=== PATIENT | female | born 1985 | race Caucasian/White ===

== ENCOUNTER → 2018-01-26 13:50 | Outpatient (REF) | payer MEDICAID, SELFPAY ==
[2018-01-26 18:53] LABS: Basophils # 0.1 K/mm3 (0-0.2); Basophils % 0.6 % (0.1-2.0); Eosinophils # 0.1 K/mm3 (0.0-0.4); Hematocrit 46.4 % (37.0-47.0); Hemoglobin 14.5 g/dL (12.2-16.2); Lymphocytes # 2.7 K/mm3 (0.7-4.5); Lymphocytes % 28.8 K/mm3 (10-50); Mean Corpuscular HGB Conc 31.3 g/dL (31.8-35.4); Mean Corpuscular Hemoglobin 29.4 pg (27.0-31.2); Mean Platelet Volume 9.8 fl (7.4-10.4); Monocytes # 0.5 K/mm3 (0.1-1.0); Monocytes % 5.5 % (1.7-9.3); Neutrophils # 5.9 K/mm3 (1.8-7.8); Platelet Count 309 K/mm3 (142-424); Red Blood Count 4.94 M/mm3 (4.20-5.40); Red Cell Distribution Width 13.9 % (11.5-17.5); White Blood Count 9.3 K/mm3 (4.8-10.8)
[2018-01-26 19:32] LABS: Alanine Aminotransferase 43 U/L (12-78); Albumin Level 4.1 gm/dL (3.4-5.0); Albumin/Globulin Ratio 1.1 (1.1-1.8); Alkaline Phosphatase 96 U/L (46-116); Anion Gap 13.4 mEq/L (5-15); Aspartate Amino Transferase 18 U/L (15-37); Bilirubin,Total 0.2 mg/dL (0.2-1.0); Blood Urea Nitrogen 6 mg/dL (7-18); Calcium 9.4 mg/dL (8.5-10.1); Carbon Dioxide 27 mmol/L (21.0-32.0); Chloride 101 mmol/L (98-107); Chol/HDL Ratio 3.3 (1-3.5); Cholesterol 171 mg/dL (140-200); Estimated Glomerular Filt Rate 96 ml/min (>60); GFR (African American) 117 ML/MIN (>60); Globulin 3.7 gm/dl (1.3-3.2); Glucose 85 mg/dL (74-106); HDL Cholesterol 52 mg/dL (29-89); LDL Cholesterol 104 mg/dL (0-130); Potassium 4.4 mmoL/L (3.5-5.1); Sodium 137 mmol/L (136-145); T4 (Thyroxine) 8.6 ug/dl (4.7-13.3); Thyroid Stimulating Hormone 2.52 uIU/ml (0.358-3.740); Total Protein,Serum 7.8 gm/dL (6.4-8.2); Triglycerides 76 mg/dL (30-200); VLDL Cholesterol 15 mg/dL (0-40)
[2018-01-28 09:16] LABS: Hep A Ab, IgM Negative (Negative); Hepatitis B Core Antibody IgM Negative (Negative); Hepatitis B Surface Antigen Negative (Negative)
[2018-01-28 19:22] LABS: Vitamin D 25 Hydroxy 19.8 ng/mL (30.0-100.0)
[2018-01-28 19:23] LABS: Hepatitis C Antibody <0.1 s/co ratio (0.0-0.9)
== END ==
LOC: LAB 13:50
PROVIDERS: Visit Provider Nurse Practitioner Family
DX: R53.83 Other fatigue (principal); Z72.51 High risk heterosexual behavior
CPT/HCPCS: 80053; 80061; 80074; 82652; 84436; 84443; 85025

== ENCOUNTER → 2018-03-28 15:08 | Outpatient (REF) | payer MEDICAID, SELFPAY | LOC: LAB 15:08 | PROVIDERS: Visit Provider Nurse Practitioner Family | DX: R10.9 Unspecified abdominal pain (principal); Z32.01 Encounter for pregnancy test, result positive | CPT/HCPCS: 84702; 87086; 87088; 87186 ==

== ENCOUNTER → 2018-06-01 12:36 | Outpatient (CLI) | payer MEDICAID, SELFPAY ==
--- NOTE | 2018-06-01 12:40 | US_ITS ---
US OB >= 14 weeks Fetus: INDICATION: ITS.REASON: US OB Dates ORDERING PHYSICIAN: Arlen Fuller MD PATIENT AGE: 32 years TECHNIQUE: ultrasound transabdominal scanning. COMPARISON: No previous relevant studies. FINDINGS: There is a single live intrauterine gestation. heart tones noted with an FHR of 140 bpm. [place]-rump length equals 15 weeks 3 days. BPD equals 16 weeks 0 days, OFD equals 15 weeks 6 days, HC equals 15 weeks 4 days. Average ultrasound age is 15 weeks 5 days. Estimated due date by ultrasound is 11/18/2018. This exam does not suffice for an anatomy evaluation. The cervix is closed measuring 4 cm. Placenta is forming and is posterior. IMPRESSION: Live intrauterine gestation at 15 weeks 5 days with an estimated due date of 11/18/2018
== END ==
PROVIDERS: PCP Nurse Practitioner Family; Visit Provider Obstetrics & Gynecology
DX: O26.841 Uterine size-date discrepancy, first trimester (principal)
CPT/HCPCS: 76805

== ENCOUNTER → 2018-07-05 13:42 | Outpatient (CLI) | payer MEDICAID, SELFPAY ==
--- NOTE | 2018-07-05 13:43 | US_ITS ---
US OB /maternal detail: INDICATION: ITS.REASON: US OB Complete ORDERING PHYSICIAN: Arlen Fuller MD PATIENT AGE: 32 years TECHNIQUE: ultrasound transabdominal scanning. COMPARISON: No previous relevant studies. FINDINGS: Single viable intrauterine gestation. Breech position. Placenta: Posterior placenta grade 1. There is average amount fluid. Complete survey performed and was unremarkable on the submitted images as in PACS. No discrete anomalies identified on survey imaging by technologist. Active fetus. Three-vessel cord with satisfactory umbilical cord insertion. There may be some mild straightening of the umbilical cord 4- chamber heart noted. Survey of brain & ventricles unremarkable. Face and neck survey unremarkable. Diaphragm and chest views unremarkable. Abdomen: Both kidneys noted and unremarkable. Stomach noted and satisfactory. Spine: Survey of the spine satisfactory with no anomalies identified nor imaged. Both arms and legs noted. Amniotic Fluid: Adequate. Maternal adnexa: No significant findings. Measurements: Average ultrasound age 20w3d. Gestational Age 20w5d. Estimated due date by ultrasound age 1211/19/2018. Estimated weight 356 grams. BPD = 20w0d OFD = 21w5d HC = 20w2d AC = 20w4d FL = 20w5d Growth Percentile= 32% based on established due date of 11/17/2018 Heart Rate = 138 Cerebellum = 20w2d Humerus = 21w2d HC/AC is 1.17 (1.09-1.26). CI is 70% (70-86%). FL/BPD is 73%. FL/AC is 22%. IMPRESSION: There is a single live fetus in breech presentation with an average ultrasound age of 20 weeks 3 days. All parameters correlate with no obvious anomalies. Please see above for detail. There is some mild stranding of the umbilical cord of questioned clinical significance.
== END ==
PROVIDERS: PCP Nurse Practitioner Family; Visit Provider Obstetrics & Gynecology
DX: Z36.0 Encounter for antenatal screening for chromosomal anomalies (principal)
CPT/HCPCS: 76811

== ENCOUNTER → 2018-08-04 07:45 | Outpatient (CLI) | payer MEDICAID, SELFPAY ==
[2018-08-04 08:16] LABS: Basophils % 0.3 % (0.1-2.0); Eosinophils # 0.2 K/mm3 (0.0-0.4); Eosinophils % 1.3 % (0.1-12.0); Hematocrit 34.5 % (37.0-47.0); Hemoglobin 11.2 g/dL (12.2-16.2); Lymphocytes # 2.8 K/mm3 (0.7-4.5); Lymphocytes % 24.9 K/mm3 (10-50); Mean Corpuscular HGB Conc 32.5 g/dL (31.8-35.4); Mean Corpuscular Hemoglobin 31.7 pg (27.0-31.2); Mean Corpuscular Volume 97.4 fl (81-99); Mean Platelet Volume 8.5 fl (7.4-10.4); Monocytes # 0.4 K/mm3 (0.1-1.0); Monocytes % 3.3 % (1.7-9.3); Neutrophils # 7.9 K/mm3 (1.8-7.8); Neutrophils % 70.1 % (37.0-80.0); Platelet Count 240 K/mm3 (142-424); Red Blood Count 3.54 M/mm3 (4.20-5.40); Red Cell Distribution Width 13.2 % (11.5-17.5); White Blood Count 11.3 K/mm3 (4.8-10.8)
[2018-08-08 05:20] LABS: HIV Screen 4th Generation wRfx Non Reactive (Non Reactive); Hepatitis B Surface Antigen Negative (Negative); Hepatitis C Antibody <0.1 s/co ratio (0.0-0.9); Rapid Plasma Reagin Ab Titer Non Reactive (NonRea<1:1)
== END ==
PROVIDERS: PCP Nurse Practitioner Family; Visit Provider Obstetrics & Gynecology
DX: Z34.90 Encounter for supervision of normal pregnancy, unspecified, unspecified trimester (principal)
CPT/HCPCS: 36415; 85025; 86592; 86703; 86762; 86850; 87340; 87380; G0432

== ENCOUNTER → 2018-10-26 08:25 | Outpatient (CLI) | payer MEDICAID, SELFPAY | PROVIDERS: Visit Provider Obstetrics & Gynecology | DX: Z34.90 Encounter for supervision of normal pregnancy, unspecified, unspecified trimester (principal) ==

== ENCOUNTER → 2018-10-26 17:02 | Outpatient (CLI) | payer MEDICAID, SELFPAY ==
[2018-10-29 07:18] LABS: Neisseria gonorrhoeae, NAA Negative (Negative)
== END ==
PROVIDERS: Visit Provider Obstetrics & Gynecology
DX: Z34.90 Encounter for supervision of normal pregnancy, unspecified, unspecified trimester (principal)
CPT/HCPCS: 86403; 87491; 87591

== ENCOUNTER 2018-11-07 09:28 | Outpatient (CLI) | payer MEDICAID, SELFPAY ==
[2018-11-07 10:05] VITALS: BMI 36.6
[2018-11-07 10:18] LABS: Microscopic, Urine URINE MICROSCOPIC (MICROSCOPIC)
[2018-11-07 10:23] LABS: Appearance,Urine CLOUDY (Clear); Bilirubin,Urine Negative (Negative); Blood, Urine Negative (Negative); Color,Urine YELLOW (Yellow); Glucose,Urine (UA) Negative (Negative); Ketones,Urine Negative (Negative); Leukocyte Esterase,Urine 2+ (Negative); Nitrate,Urine Negative (Negative); Protein,Urine Negative (Negative); Specific Gravity, Urine 1.015 (1.005-1.030); Urobilinogen,Urine 0.2 EU/dl (0.2)
[2018-11-07 10:29] LABS: Amphetamine/Metha Screen,Urine Negative ng/mL (<1000); Barbiturates Screen,Urine Negative ng/mL (<200); Benzodiazepines Screen,Urine Negative ng/mL (<200); Cannabinoid Screen,Urine Negative ng/mL (<50); Cocaine Screen,Urine Negative ng/mL (<300); Methadone Screen,Urine Negative ng/mL (<300); Opiate Screen,Urine Negative ng/mL (<300); Phencyclidine Screen,Urine Negative ng/mL (<25)
[2018-11-07 10:31] VITALS: BP 145/78; PULSE 90; RESP 16; TEMP 36.6; O2SAT 97; BMI 36.6
[2018-11-07 10:32] LABS: Fetal Membrane Rupture (Rapid) Negative (Negative)
[2018-11-07 10:35] LABS: Bacteria,Urine 4+ /lpf; Squamous Epithelial Cell,Urine 20-50 #/hpf (0-5); WBC,Urine 20-50 #/hpf (0-3)
== END 2018-11-07 11:05 | disposition home or self-care (01) ==
LOC: OBOUT 09:29 → OB 09:30
PROVIDERS: PCP Nurse Practitioner Family; Visit Provider Obstetrics & Gynecology
DX: O60.03 Preterm labor without delivery, third trimester (principal); Z3A.38 38 weeks gestation of pregnancy
CPT/HCPCS: 59025; 80305; 81001; 84112; 87086

== ENCOUNTER 2018-11-13 16:00 | Outpatient (CLI) | payer MEDICAID, SELFPAY ==
[2018-11-13 16:17] VITALS: BMI 36.6
[2018-11-13 16:25] LABS: Microscopic, Urine URINE MICROSCOPIC (MICROSCOPIC)
[2018-11-13 16:27] LABS: Appearance,Urine CLOUDY (Clear); Bilirubin,Urine Negative (Negative); Blood, Urine Negative (Negative); Color,Urine YELLOW (Yellow); Glucose,Urine (UA) Negative (Negative); Ketones,Urine Negative (Negative); Leukocyte Esterase,Urine 3+ (Negative); Nitrate,Urine Negative (Negative); Protein,Urine Negative (Negative); Specific Gravity, Urine 1.015 (1.005-1.030); Urobilinogen,Urine 0.2 EU/dl (0.2)
[2018-11-13 16:30] VITALS: BP 137/88; PULSE 81; RESP 18; TEMP 37; O2SAT 97; BMI 42.4
[2018-11-13 16:35] LABS: Amphetamine/Metha Screen,Urine Negative ng/mL (<1000); Bacteria,Urine 4+ /lpf; Barbiturates Screen,Urine Negative ng/mL (<200); Benzodiazepines Screen,Urine Negative ng/mL (<200); Cannabinoid Screen,Urine Positive ng/mL (<50); Cocaine Screen,Urine Negative ng/mL (<300); Methadone Screen,Urine Negative ng/mL (<300); Opiate Screen,Urine Negative ng/mL (<300); Phencyclidine Screen,Urine Negative ng/mL (<25); Squamous Epithelial Cell,Urine 20-50 #/hpf (0-5)
== END 2018-11-13 18:20 | disposition home or self-care (01) ==
LOC: OBOUT 16:01 → OB 16:03
PROVIDERS: PCP Nurse Practitioner Obstetrics & Gynecology; Visit Provider Nurse Practitioner Obstetrics & Gynecology
DX: O60.03 Preterm labor without delivery, third trimester (principal); Z3A.39 39 weeks gestation of pregnancy
CPT/HCPCS: 59025; 80305; 81001; 87086; 96360; J0595

== ENCOUNTER 2018-11-16 09:58 | Inpatient (IN) ==
[2018-11-16 10:20] VITALS: BP 141/81
[2018-11-16 12:34] LABS: Amphetamine/Metha Screen,Urine Negative ng/mL (<1000); Barbiturates Screen,Urine Negative ng/mL (<200); Benzodiazepines Screen,Urine Negative ng/mL (<200); Cannabinoid Screen,Urine Positive ng/mL (<50); Cocaine Screen,Urine Negative ng/mL (<300); Methadone Screen,Urine Negative ng/mL (<300); Opiate Screen,Urine Negative ng/mL (<300); Phencyclidine Screen,Urine Negative ng/mL (<25)
[2018-11-16 12:48] LABS: Basophils % 0.3 % (0.1-2.0); Eosinophils # 0.1 K/mm3 (0.0-0.4); Hematocrit 32.3 % (37.0-47.0); Hemoglobin 10.7 g/dL (12.2-16.2); Lymphocytes # 2.7 K/mm3 (0.7-4.5); Lymphocytes % 21.6 % (10-50); Mean Corpuscular HGB Conc 33.1 g/dL (31.8-35.4); Mean Corpuscular Hemoglobin 31.3 pg (27.0-31.2); Mean Corpuscular Volume 94.4 fl (81-99); Mean Platelet Volume 8.5 fl (7.4-10.4); Monocytes # 0.4 K/mm3 (0.1-1.0); Monocytes % 3.4 % (1.7-9.3); Neutrophils # 9.1 K/mm3 (1.8-7.8); Neutrophils % 73.7 % (37.0-80.0); Platelet Count 240 K/mm3 (142-424); Red Blood Count 3.42 M/mm3 (4.20-5.40); Red Cell Distribution Width 13.9 % (11.5-17.5); White Blood Count 12.3 K/mm3 (4.8-10.8)
--- NOTE | 2018-11-16 15:05 | Progress Note ---
[facility] Anesthesia Checklist - Structural Data Admitted From: Inpatient Planned Operative Procedure/s: labor epidural Consent for Planned Operative Procedure(s) Verified: Yes - Airway Assessment C-Spine Mobility Assessed: Yes TMJ Mobility Assessed: Yes Dentition: Good Dentition - Neurological Assessment Level of Consciousness: Awake, Alert, Appropriate - Anesthesia Plan Anesthesia Risk discussed: Yes Anesthesia Plan: Verified ASA Class: II Anesthesia Type: Epidural [facility] History I have reviewed the patient's past medical history: Yes Medical History: Reports:: Anxiety, Depression Other Surgeries: Yes: No Previous Surgery. No: Amputation: No Fractures: No - *Social History Smoking Status: Current every day smoker Tobacco Type: cigarettes # Packs/Day (cigarettes): 1 Alcohol Intake: never Substance Use Type: former substance user, marijuana Occupational Status: employed Housing: apartment Household Members: children, friend(s) - Psychiatric History Pschychiatric History:: Reports:: Anxiety, Depression *Family Hx:: No significant family history Para: 4
--- NOTE | 2018-11-16 16:17 | History & Physical Report ---
OB - H&P: HPI Antepartum - History of Present Illness Chief complaint: contractions History of present illness: 39+ wks with regular contractions and noted cervical change. Admitted for active labor. care Dr. Fuller's office; complicated by late presentation, obesity, bipolar d/o, tobacco abuse, +UDS (THC) and chlamydia cervicitis. GCT was also no-showed at correct GA and subsequent testing ordered was not drawn correctly. [facility] History I have reviewed the patient's past medical history: Yes Medical History: Reports:: Anxiety, Depression Other Surgeries: Yes: No Previous Surgery. No: Amputation: No Fractures: No - *Social History Smoking Status: Current every day smoker Tobacco Type: cigarettes # Packs/Day (cigarettes): 1 Alcohol Intake: never Substance Use Type: former substance user, marijuana Occupational Status: employed Housing: apartment Household Members: children, friend(s) - Psychiatric History Pschychiatric History:: Reports:: Anxiety, Depression *Family Hx:: No significant family history Para: 4 Review of Systems - Review of Systems CONSTITUTIONAL: no fever/chills HEENT: no oral lesions PULMONARY: no shortness of breath or difficulty breathing CV: no racing heart, palpitations or chest pain ABD: no abdominal pain, N/V : + contractions. no lof/vb SKIN: no new rash or skin lesions EXT: + LE edema NEURO: no mental status changes PSYCH: no current anxiety/depression; + h/o bipolar d/o Meds Home Medications Medication Instructions Recorded Confirmed Type 1 tab PO DAILY 06/30/18 11/16/18 History vitamin,calcium,cxbwiwga-vjrk-mkkmi acid tablet Cetirizine HCl [All Day Allergy] 10 mg PO DAILY 11/07/18 11/16/18 History Citalopram Hydrobromide 20 mg PO DAILY 11/07/18 11/16/18 History [Citalopram HBr] Allergies Allergy/AdvReac Type Severity Reaction Status Date / Time amoxicillin [From AUGMENTIN] Allergy Severe THROAT Verified 10/26/18 09:30 CLOSED UP cephalexin [From KEFLEX] Allergy Severe SHOCK Verified 10/26/18 09:30 clavulanic acid Allergy Severe THROAT Verified 10/26/18 09:30 [From AUGMENTIN] CLOSED UP PCN Allergy Intermediate I-HIVES Uncoded 10/26/18 09:30 OB - H&P: Exam - Physical Exam Vital signs: Temp Pulse Resp BP Pulse Ox 98.4 F 80 18 141/81 H 97 11/16/18 10:09 11/16/18 10:09 11/16/18 10:09 11/16/18 10:09 11/16/18 10:09 Narrative: CONSTITUTIONAL: no acute distress HEENT: mucous membranes moist PULMONARY: breathing unlabored without audible wheezes CV: no tachycardia or visible JVD; normal LE peripheral pulses ABD: soft, NT/ND, no guarding : cervix 4/70/-1 AROM clear fluid; IUPC and FSE placed without difficulty SKIN: no visible rash or lesions EXT: 1+ edema LEs NEURO: alert/oriented, no altered mental status PSYCH: appropriate mood and demeanor without visible anxiety/depression NST: Basline: 140 Variability: moderate Accelerations: yes Decelerations: no Impression: Reactive, Category 1 OB - Results - Labs Labs: Short CBC 11/16/18 Range/Units 12:35 WBC 12.3 H (4.8-10.8) K/mm3 Hgb 10.7 L (12.2-16.2) g/dL Hct 32.3 L (37.0-47.0) % Plt Count 240 (142-424) K/mm3 OB - A/P Antepartum (1) 39 weeks gestation of Current visit: Yes Status: Acute (2) Active labor at term Current visit: Yes Status: Acute (3) Bipolar 1 disorder Current visit: Yes Status: Acute (4) Chlamydia infection affecting in second trimester Current visit: Yes Status: Acute (5) Obesity, morbid, BMI 40.0-49.9 Current visit: Yes Status: Chronic (6) Positive urine drug screen Problem details: THC Current visit: Yes Status: Acute (7) Tobacco smoking complicating in first trimester Problem details: 1PPD Current visit: Yes Status: Chronic (8) Penicillin allergy Current visit: Yes Status: Chronic - Additional Plan Additional Information:: Admission for labor Pitocin augmentation per protocol Continuous monitoring Anticipate SW consult
--- NOTE | 2018-11-16 16:57 | Procedure Note ---
- Delivery Note Delivery Date:: 11/16/18 Delivery Time:: 16:55 Anesthesia Type: Epidural Was labor medically induced?: No Gestational age (weeks): 39 Infant delivered prior to 39 weeks?: No Gender: Female at 1 minute: 9 at 5 minutes: 9 LAC or MLE?: LAC Delivery Procedure:: Spontaneous vaginal delivery of vigorous liveborn female over intact perineum. Apgars: 9 & 9 Delivery uncomplicated; no nuchal cord or shoulder dystocia with delivery Infant placed immediately on maternal abdomen for nursing assessment & JUVENTINO immediately after umbilical cord clamped/cut Placenta spontaneously expressed and examined; noted to be complete/intact Vulva, vagina, and cervix inspected; first degree vaginal laceration noted without needed repair EBL: 300cc All sponge/needle/instrument counts correct at conclusion of procedure Disposition: Mom/baby stable to recovery in LDRP Laceration:: vaginal Placental Delivery Description: Spontaneous
[2018-11-17 06:15] LABS: Hematocrit 28.7 % (37.0-47.0)
[2018-11-17 06:22] LABS: Hemoglobin 9.6 g/dL (12.2-16.2)
--- NOTE | 2018-11-18 09:10 | Progress Note ---
Internal Medicine - PN: Subj *Date: 11/17/18 *Time: 09:06 Interval history: PPD #1 no complaints Taisha reg diet, ambulating and voiding without difficulty lochia normal Exam Vital signs and Labs for Last 24 Hours: Temp Pulse Resp BP Pulse Ox 98.4 F 80 18 141/81 H 97 11/16/18 10:09 11/16/18 10:09 11/16/18 10:09 11/16/18 10:09 11/16/18 10:09 I & O for Last 24 hours: Intake & Output 11/15/18 11/16/18 11/17/18 11/18/18 11:59 11:59 11:59 11:59 Weight 246 lb 247 lb Narrative: CONSTITUTIONAL: no acute distress HEENT: mucous membranes moist PULMONARY: breathing unlabored without audible wheezes CV: no tachycardia or visible JVD; normal LE peripheral pulses ABD: soft, NT/ND, no guarding : fundus firm at/below umbilicus SKIN: no visible rash or lesions EXT: 1+ edema LEs NEURO: alert/oriented, no altered mental status PSYCH: appropriate mood and demeanor without visible anxiety/depression Assessment and Plan (1) 39 weeks gestation of Current visit: Yes Status: Acute Category: Medical Code(s): Z3A.39 - 39 weeks gestation of (2) Normal vaginal delivery Current visit: Yes Status: Acute Category: Medical Code(s): O80 - Encounter for full-term uncomplicated delivery (3) Active labor at term Current visit: Yes Status: Acute Category: Medical (4) Bipolar 1 disorder Current visit: Yes Status: Acute Category: Medical Code(s): F31.9 - Bipolar disorder, unspecified (5) Chlamydia infection affecting in second trimester Current visit: Yes Status: Acute Category: Medical Code(s): O98.812 - Other maternal infectious and parasitic diseases complicating , second trimester; A74.9 - Chlamydial infection, unspecified (6) Obesity, morbid, BMI 40.0-49.9 Current visit: Yes Status: Chronic Category: Medical Code(s): E66.01 - Morbid (severe) obesity due to excess calories (7) Positive urine drug screen Problem details: THC Current visit: Yes Status: Acute Category: Medical Code(s): R82.5 - Elevated urine levels of drugs, medicaments and biological substances (8) Tobacco smoking complicating in first trimester Problem details: 1PPD Current visit: Yes Status: Chronic Category: Medical Code(s): O99.331 - Smoking (tobacco) complicating , first trimester (9) Penicillin allergy Current visit: Yes Status: Chronic Category: Medical Code(s): Z88.0 - Allergy status to penicillin - Assessment and plan all Dx Assessment and Plan for all problems:: Routine care SW consult for +urine tox anticipate discharge tomorrow
--- NOTE | 2018-11-18 09:18 | Discharge Summary ---
General - General Admission date:: 11/16/18 Discharge date: 11/18/18 HPI HPI: Admitted in active labor at term S/P normal without complication Routine course At time of discharge, tolerating regular diet, ambulating and voiding without d ifficulty SW consult occurred Hospital Course Hospital Course: as per HPI Objective Vital signs: Temp Pulse Resp BP Pulse Ox 98.4 F 80 18 141/81 H 97 11/16/18 10:09 11/16/18 10:09 11/16/18 10:11/16/18 10:11/16/18 10:09 Narrative: CONSTITUTIONAL: no acute distress HEENT: mucous membranes moist PULMONARY: breathing unlabored without audible wheezes CV: no tachycardia or visible JVD; normal LE peripheral pulses ABD: soft, NT/ND, no guarding : fundus firm at/below umbilicus SKIN: no visible rash or lesions EXT: 1+ edema LEs NEURO: alert/oriented, no altered mental status PSYCH: appropriate mood and demeanor without visible anxiety/depression DS: Diagnosis - Discharge Diagnosis (1) 39 weeks gestation of Status: Acute (2) Normal vaginal delivery Status: Acute (3) Active labor at term Status: Acute (4) Bipolar 1 disorder Status: Acute (5) Chlamydia infection affecting in second trimester Status: Acute (6) Obesity, morbid, BMI 40.0-49.9 Status: Chronic (7) Positive urine drug screen Status: Acute Problem details: THC (8) Tobacco smoking complicating in first trimester Status: Chronic Problem details: 1PPD (9) Penicillin allergy Status: Chronic Discharge Plan - Patient Discharge Instructions ACTIVITY: Continue current activity DIET: regular diet - Follow up Plan Disposition: Home, Self-Halfway Medications: Home Medications Medication Instructions Recorded Confirmed Type 1 tab PO DAILY 06/30/18 11/16/18 History vitamin,calcium,lhvlkveg-jeis-yquhi acid tablet Cetirizine HCl [All Day Allergy] 10 mg PO DAILY 11/07/18 11/16/18 History Citalopram Hydrobromide 20 mg PO DAILY 11/07/18 11/16/18 History [Citalopram HBr] Ibuprofen [Motrin 400mg 800 mg PO Q6HP PRN #30 tablet 11/18/18 Rx tablet] Prescriptions/Medication Reconciliation: New Ibuprofen [Motrin 400mg tablet] 800 mg PO Q6HP PRN #30 tablet PRN Reason: Mild To Moderate Pain Continue vitamin,calcium,luhyqxdw-fmli-lxrdh acid tablet 1 tab PO DAILY Cetirizine HCl [All Day Allergy] 10 mg PO DAILY Citalopram Hydrobromide [Citalopram HBr] 20 mg PO DAILY
== END 2018-11-18 12:00 | disposition home or self-care (01) | DRG 807 ==
LOC: OBOUT 09:58 → OB 10:01
PROVIDERS: ADMIT Obstetrics & Gynecology; ATTEND Obstetrics & Gynecology
CPT/HCPCS: 36415; 59025; 80305; 81001; 85014; 85018; 85025; 86850; 87086; 96360; C1758; J0595

== ENCOUNTER → 2019-05-11 16:51 | Outpatient (CLI) | payer MEDICAID, SELFPAY ==
[2019-05-11 18:18] LABS: Basophils % 0.3 % (0.1-2.0); Eosinophils # 0.2 K/mm3 (0.0-0.4); Eosinophils % 2.2 % (0.1-12.0); Hematocrit 43.4 % (37.0-47.0); Hemoglobin 13.1 g/dL (12.2-16.2); Lymphocytes % 32.6 % (10-50); Mean Corpuscular HGB Conc 30.3 g/dL (31.8-35.4); Mean Corpuscular Hemoglobin 27.8 pg (27.0-31.2); Mean Corpuscular Volume 91.8 fl (81-99); Mean Platelet Volume 10.1 fl (7.4-10.4); Monocytes # 0.7 K/mm3 (0.1-1.0); Monocytes % 7.9 % (1.7-9.3); Neutrophils # 5.3 K/mm3 (1.8-7.8); Platelet Count 289 K/mm3 (142-424); Red Blood Count 4.73 M/mm3 (4.20-5.40); Red Cell Distribution Width 13.9 % (11.5-17.5); White Blood Count 9.2 K/mm3 (4.8-10.8)
[2019-05-11 18:44] LABS: Chloride 106 mmol/L (98-107); Potassium 4.3 mmoL/L (3.5-5.1); Sodium 142 mmol/L (136-145)
[2019-05-11 19:07] LABS: Alanine Aminotransferase 32 U/L (12-78); Albumin Level 3.7 gm/dL (3.4-5.0); Albumin/Globulin Ratio 1.2 (1.1-1.8); Alkaline Phosphatase 73 U/L (46-116); Anion Gap 18.3 mEq/L (5-15); Aspartate Amino Transferase 14 U/L (15-37); Bilirubin,Total 0.2 mg/dL (0.2-1.0); Blood Urea Nitrogen 10 mg/dL (7-18); Calcium 8.7 mg/dL (8.5-10.1); Carbon Dioxide 22 mmol/L (21.0-32.0); Estimated Glomerular Filt Rate 96 ml/min (>60); GFR (African American) 116 ML/MIN (>60); Globulin 3.1 gm/dl (1.3-3.2); Glucose 100 mg/dL (74-106); Total Protein,Serum 6.8 gm/dL (6.4-8.2)
[2019-05-11 19:36] LABS: Free T4 (Free Thyroxine) 0.88 ng/dl (0.76-1.46); Thyroid Stimulating Hormone 1.84 uIU/ml (0.358-3.740)
[2019-05-14 21:38] LABS: Triiodothyronine (T3) Free 2.6 pg/mL (2.0-4.4); Vitamin D 25 Hydroxy 27.1 ng/mL (30.0-100.0)
== END ==
PROVIDERS: Visit Provider Nurse Practitioner Family
DX: R53.83 Other fatigue (principal); E55.9 Vitamin D deficiency, unspecified; Z79.899 Other long term (current) drug therapy
CPT/HCPCS: 80053; 82652; 84439; 84443; 84481; 85025

== ENCOUNTER → 2019-05-19 14:24 | Outpatient (CLI) | payer MEDICAID, SELFPAY ==
[2019-05-19 16:42] LABS: Amphetamine/Metha Screen,Urine Negative ng/mL (<1000); Barbiturates Screen,Urine Negative ng/mL (<200); Benzodiazepines Screen,Urine Negative ng/mL (<200); Cannabinoid Screen,Urine Positive ng/mL (<50); Cocaine Screen,Urine Negative ng/mL (<300); Methadone Screen,Urine Negative ng/mL (<300); Opiate Screen,Urine Negative ng/mL (<300); Phencyclidine Screen,Urine Negative ng/mL (<25)
== END ==
PROVIDERS: Visit Provider Nurse Practitioner Family
DX: Z79.899 Other long term (current) drug therapy (principal)
CPT/HCPCS: 80305

== ENCOUNTER → 2021-04-15 13:48 | Outpatient (CLI) | payer OTHER, SELFPAY ==
[2021-04-15 14:15] LABS: Alanine Aminotransferase 17 U/L (12-78); Albumin Level 4.1 g/dl (3.5-5.0); Albumin/Globulin Ratio 1.7 (1.1-1.8); Alkaline Phosphatase 61 U/L (38-126); Anion Gap 12.1 mEq/L (5-15); Aspartate Amino Transferase 22 U/L (14-36); Bilirubin,Total 0.5 mg/dl (0.2-1.3); Blood Urea Nitrogen 9 mg/dl (7-17); Carbon Dioxide 26 mmol/L (22.0-30.0); Chloride 108 mmol/L (98-107); Chol/HDL Ratio 3.2 (1-3.5); Cholesterol 138 mg/dl (140-200); Estimated Glomerular Filt Rate 113 ml/min (>60); GFR (African American) 137 ML/MIN (>60); Globulin 2.4 g/dL (1.3-3.2); Glucose 88 mg/dl (74-100); HDL Cholesterol 43 mg/dl (40-60); Potassium 4.1 mmoL/L (3.5-5.1); Sodium 142 mmol/L (136-145); Total Protein,Serum 6.5 g/dl (6.3-8.2); Triglycerides 57 mg/dl (30-150); VLDL Cholesterol 11 mg/dL (0-40)
[2021-04-15 14:31] LABS: Free T4 (Free Thyroxine) 1.28 ng/dl (0.78-2.19)
[2021-04-15 14:33] LABS: Basophils # 0.1 K/mm3 (0-0.2); Basophils % 0.7 % (0.1-2.0); Eosinophils # 0.2 K/mm3 (0.0-0.4); Eosinophils % 2.1 % (0.1-12.0); Hematocrit 41.8 % (37.0-47.0); Hemoglobin 13.3 g/dL (12.2-16.2); Lymphocytes # 2.8 K/mm3 (0.7-4.5); Lymphocytes % 37.3 % (10-50); Mean Corpuscular HGB Conc 31.9 g/dL (31.8-35.4); Mean Corpuscular Hemoglobin 30.1 pg (27.0-31.2); Mean Corpuscular Volume 94.5 fl (81-99); Mean Platelet Volume 9.8 fl (7.4-10.4); Monocytes # 0.4 K/mm3 (0.1-1.0); Monocytes % 4.9 % (1.7-9.3); Neutrophils # 4.1 K/mm3 (1.8-7.8); Neutrophils % 55.1 % (37.0-80.0); Platelet Count 258 K/mm3 (142-424); Red Blood Count 4.42 M/mm3 (4.20-5.40); Red Cell Distribution Width 13.9 % (11.5-17.5); White Blood Count 7.4 K/mm3 (4.8-10.8)
[2021-04-15 14:46] LABS: Thyroid Stimulating Hormone 1.22 uIU/mL (0.465-4.68)
== END ==
PROVIDERS: Visit Provider Nurse Practitioner Family
DX: Z00.00 Encounter for general adult medical examination without abnormal findings (principal)
CPT/HCPCS: 80053; 80061; 84439; 84443; 85025

== ENCOUNTER → 2021-05-15 12:43 | Outpatient (CLI) | payer OTHER, SELFPAY | PROVIDERS: PCP Nurse Practitioner Family; Visit Provider Nurse Practitioner Family | DX: R06.02 Shortness of breath (principal) | CPT/HCPCS: 94060; 94618; 94726; 94729 ==

== ENCOUNTER 2021-10-03 16:16 | Emergency (ER) | payer OTHER, SELFPAY ==
--- NOTE | 2021-10-03 16:16 | ECG_ITS ---
APPROVED REPORT Exam: Resting ECG HR:59 bpm ECG Measurements Heart Rate 59 AXES NV 160 P 29 QRSd 102 QRS 0 QT 426 T 13 QTc 421 Conclusion Sinus bradycardia Otherwise normal ECG Electronically signed by : Boris Lorenzana MD 10/05/2021 08:32:36
[2021-10-03 16:23] VITALS: BP 130/79; PULSE 61; RESP 18; TEMP 36.7; O2SAT 98; BMI 40.3
--- NOTE | 2021-10-03 16:25 | XR_ITS ---
PROCEDURE INFORMATION: Exam: XR Chest Exam date and time: 10/03/2021 4:25 PM Age: 35 years old Clinical indication: Chest wall pain; Patient HX: Chest pain; Additional info: Cough TECHNIQUE: Imaging protocol: XR of the chest. Views: 1 view. COMPARISON: No relevant prior studies available. FINDINGS: Lungs: No lobar consolidation, effusion or edema. 7 mm possible pulmonary nodule right lower lobe. CT is recommended. Pleural spaces: Unremarkable. No pleural effusion. No pneumothorax. Heart/Mediastinum: Unremarkable. No cardiomegaly. Bones/joints: Unremarkable. IMPRESSION: 1. No lobar consolidation, effusion or edema. 2. 7 mm possible pulmonary nodule right lower lobe. CT is recommended unless there are previous radiographs that can confirm this is stable and chronic.
[2021-10-03 16:33] VITALS: BMI 40.3
[2021-10-03 16:41] LABS: Basophils # 0.1 K/mm3 (0-0.2); Basophils % 0.8 % (0.1-2.0); Eosinophils # 0.2 K/mm3 (0.0-0.4); Eosinophils % 2.2 % (0.1-12.0); Hematocrit 39.8 % (37.0-47.0); Hemoglobin 12.7 g/dL (12.2-16.2); Lymphocytes # 3.1 K/mm3 (0.7-4.5); Lymphocytes % 40.2 % (10-50); Mean Corpuscular HGB Conc 31.9 g/dL (31.8-35.4); Mean Platelet Volume 8.7 fl (7.4-10.4); Monocytes # 0.4 K/mm3 (0.1-1.0); Monocytes % 4.9 % (1.7-9.3); Neutrophils # 4.1 K/mm3 (1.8-7.8); Neutrophils % 51.9 % (37.0-80.0); Platelet Count 267 K/mm3 (142-424); Red Cell Distribution Width 13.4 % (11.5-17.5); White Blood Count 7.8 K/mm3 (4.8-10.8)
[2021-10-03 16:49] LABS: Chloride 105 mmol/L (98-107); Sodium 139 mmol/L (136-145)
[2021-10-03 16:50] LABS: Potassium 3.8 mmoL/L (3.5-5.1)
[2021-10-03 16:52] LABS: Blood Urea Nitrogen 9 mg/dl (7-17); Creatinine Clearance Estimated 232 mL/min (50-200); Estimated Glomerular Filt Rate 113 ml/min (>60); GFR (African American) 137 ML/MIN (>60)
[2021-10-03 16:53] LABS: Anion Gap 9.8 mEq/L (5-15); Calcium 8.8 mg/dl (8.4-10.2); Carbon Dioxide 28 mmol/L (22.0-30.0); Glucose 108 mg/dl (74-100)
[2021-10-03 17:00] VITALS: BP 135/77; PULSE 62; RESP 17; O2SAT 98
--- NOTE | 2021-10-03 17:29 | [facility].EDCP ---
ED Disposition Clinical Impression: Chest pain Qualifiers: Chest pain type: unspecified Qualified Code(s): R07.9 - Chest pain, unspecified Disposition: Left Against Medical Advice Condition on Discharge: Fair Instructions: DI for Atypical Chest Pain Referrals: Aidan Taveras APRN [Primary Care Provider] - - Critical Care Critical Care Time: No Attestation: On 10/03/21, the high probability of a clinically significant, sudden or life threatening deterioration of the following system(s) required my full and direct attention, intervention and personal management. The time I documented below is in addition to time spent performing reported procedures but includes the following listed in this critical care notation. Medical Decision Making - Medical Records Medical records reviewed: Yes: I reviewed the patient's medical records. - Marcelo Inquiry Pt receiving controlled substance: No Vital Signs: 10/03/21 16:23 10/03/21 17:00 Temperature 98.0 F Temperature Source Oral Pulse Rate 62 Pulse Rate [Right Radial] 61 Respiratory Rate 18 17 Blood Pressure 135/77 Blood Pressure [Right Arm] 130/79 Blood Pressure Mean 96 Blood Pressure Mean [Right Arm] 96 Blood Pressure Source [Right Arm] Automatic Cuff Blood Pressure Position [Right Arm] Sitting 02 Sat by Pulse Oximetry 98 98 Oxygen Delivery Method Room Air - Lab Data Lab Results 10/03/21 16:30: WBC 7.8, RBC 4.10 L, Hgb 12.7, Hct 39.8, MCV 97.0, MCH 31.0, MCHC 31.9, RDW 13.4, Plt Count 267, MPV 8.7, Neut % (Auto) 51.9, Lymph % (Auto) 40.2, Coleman % (Auto) 4.9, Eos % (Auto) 2.2, Baso % (Auto) 0.8, Neut # (Auto) 4.1, Lymph # (Auto) 3.1, Coleman # (Auto) 0.4, Eos # (Auto) 0.2, Baso # (Auto) 0.1 10/03/21 16:30: Sodium 139, Potassium 3.8, Chloride 105, Carbon Dioxide 28, Anion Gap 9.8, BUN 9, Creatinine 0.60, Estimated Creat Clear 232, Estimated GFR 113, Est GFR ( Amer) 137, Glucose 108 H, Calcium 8.8, Troponin I < 0.01 Result diagrams: 10/03/21 16:30 10/03/21 16:30 Orders (Tests/Meds): ORDERS Category Date Time Status Troponin I Q3H Lab 10/03/21 19:30 Ordered Troponin I Q3H Lab 10/03/21 22:30 Ordered - Radiology Data #1 Image(s): Chest Image Reviewed: Yes I reviewed the patient's radiology results, Yes I reviewed the patient's radiology image, Yes I have reviewed radiologist's interpretation IMPRESSION: 1. No lobar consolidation, effusion or edema. 2. 7 mm possible pulmonary nodule right lower lobe. CT is recommended unless there are previous radiographs that can confirm this is stable and chronic. - ECG Data Tracing #1 I reviewed this ECG and interpreted as documented below: ECG initial impression date: 10/03/21 ECG initial impression time: 16:16 ECG normal with no acute: arrhythmias, ischemia, conduction abnormalities, chamber hypertrophy Arrhythmias present: sinus maribel - Reevaluation(s) Time: 18:01 Reevaluation #1: Upon going to reevaluate the patient, she was nowhere to be found. We did page her of her head. Patient did not respond. There was evidence that she removed her own IV and left in the room. Patient had received the final diagnostic notifications as well as reexamination. Left without completing treatment. - AC Score for Non-Stemi Age of Patient: 30-39 years old Heart Rate: 50-69 bpm Systolic Blood Pressure: 120-139 mmhg Serum Creatinine: <0.40 mg/dl CHF [place] Class: I-No CHF Other Risk Factors: None Non-Stemi Risk Score: 46 Risk Stratification: 1-108 = Low Risk Medical Decision Narrative: Is a 35-year-old female presenting with some nonspecific chest pain earlier this morning. It is since resolved. Sounds atypical for cardiac in nature. Patient is low risk based on heart score. Work-up initiated. Chest Pain HPI - General Chief Complaint: Chest Pain Stated Complaint: chest pain Time Seen by Provider: 10/03/21 16:30 Mode of Arrival: Ambulatory Limitations: No Limitations Descr
[2021-10-03 17:57] LABS: Troponin I < 0.01 ng/ml (0.00-0.034)
[2021-10-03 18:57] VITALS: BP 00/0; PULSE 0; RESP 0; TEMP -17.7; TEMP 0
== END 2021-10-03 18:59 | disposition left against medical advice (07) ==
PROVIDERS: Emergency Provider Emergency Medicine; PCP Nurse Practitioner Family
DX: R07.9 Chest pain, unspecified (principal); F41.8 Other specified anxiety disorders; F17.210 Nicotine dependence, cigarettes, uncomplicated; Z79.899 Other long term (current) drug therapy
CPT/HCPCS: 71045; 80048; 84484; 85025; 93005; 99283

== ENCOUNTER → 2022-05-22 13:44 | Outpatient (CLI) | payer OTHER, SELFPAY ==
[2022-05-22 18:57] LABS: Alanine Aminotransferase 20 U/L (12-78); Albumin Level 4.3 g/dl (3.5-5.0); Albumin/Globulin Ratio 1.7 (1.1-1.8); Alkaline Phosphatase 82 U/L (38-126); Anion Gap 12.1 mEq/L (5-15); Aspartate Amino Transferase 25 U/L (14-36); Blood Urea Nitrogen 10 mg/dl (7-17); Calcium 9.6 mg/dl (8.4-10.2); Carbon Dioxide 23 mmol/L (22.0-30.0); Chloride 109 mmol/L (98-107); Chol/HDL Ratio 3.2 (1-3.5); Cholesterol 120 mg/dl (140-200); Estimated Glomerular Filt Rate 112 ml/min (>60); GFR (African American) 136 ML/MIN (>60); Globulin 2.6 g/dL (1.3-3.2); Glucose 91 mg/dl (74-100); HDL Cholesterol 38 mg/dl (40-60); Potassium 4.1 mmoL/L (3.5-5.1); Sodium 140 mmol/L (136-145); Total Protein,Serum 6.9 g/dl (6.3-8.2); Triglycerides 67 mg/dl (30-150); VLDL Cholesterol 13 mg/dL (0-40)
[2022-05-22 19:00] LABS: Basophils # 0.1 K/mm3 (0-0.2); Basophils % 1.2 % (0.1-2.0); Eosinophils # 0.2 K/mm3 (0.0-0.4); Eosinophils % 1.3 % (0.1-12.0); Hematocrit 44.7 % (37.0-47.0); Hemoglobin 13.8 g/dL (12.2-16.2); Lymphocytes # 2.9 K/mm3 (0.7-4.5); Lymphocytes % 24.8 % (10-50); Mean Corpuscular HGB Conc 30.8 g/dL (31.8-35.4); Mean Corpuscular Hemoglobin 31.2 pg (27.0-31.2); Mean Corpuscular Volume 101.3 fl (81-99); Mean Platelet Volume 11.3 fl (7.4-10.4); Monocytes # 0.6 K/mm3 (0.1-1.0); Monocytes % 5.4 % (1.7-9.3); Neutrophils # 7.9 K/mm3 (1.8-7.8); Neutrophils % 67.2 % (37.0-80.0); Platelet Count 283 K/mm3 (142-424); Red Blood Count 4.41 M/mm3 (4.20-5.40); Red Cell Distribution Width 13.4 % (11.5-17.5); White Blood Count 11.8 K/mm3 (4.8-10.8)
[2022-05-22 19:03] LABS: Bilirubin,Total 0.1 mg/dl (0.2-1.3)
[2022-05-22 19:08] LABS: Direct LDL Cholesterol 60.82 mg/dL (100-129)
[2022-05-22 19:13] LABS: 25-OH Vitamin D, Total 35.9 ng/mL (30-100); T4 (Thyroxine) 10.1 ug/dl (5.53-11.0)
[2022-05-22 19:27] LABS: Thyroid Stimulating Hormone 2.66 uIU/mL (0.465-4.68)
[2022-05-22 20:27] LABS: Hemoglobin A1C 5.5 % (4.0-6.0)
== END ==
PROVIDERS: PCP Nurse Practitioner Family; Visit Provider Nurse Practitioner Family
DX: E11.9 Type 2 diabetes mellitus without complications (principal); R53.83 Other fatigue; E78.5 Hyperlipidemia, unspecified; Z68.41 Body mass index [BMI] 40.0-44.9, adult; E66.9 Obesity, unspecified; Z72.0 Tobacco use
CPT/HCPCS: 80053; 80061; 82306; 83036; 84436; 84443; 85025

== ENCOUNTER → 2022-10-23 12:38 | Outpatient (CLI) | payer OTHER, SELFPAY ==
--- NOTE | 2022-10-23 12:56 | MR_ITS ---
FINAL REPORT CLINICAL HISTORY: back pain worse on left side. left leg and foot tingling. FINDINGS: Multiplanar MR imaging of the lumbar spine was performed without contrast. On the sagittal T2-weighted images, abnormal decreased signal is seen at L3-4 and L4-5. The vertebrae are of normal height. The vertebral alignment is normal. L1-2: There is no significant canal stenosis or neural foraminal narrowing. L2-3: There is no significant canal stenosis or neural foraminal narrowing. L3-4: There is no significant canal stenosis or neural foraminal narrowing. L4-5: Mild diffuse disc bulge is present with mild bilateral neural foraminal narrowing. L5-S1: Left posterolateral disc protrusion is present. There is moderate left neural foraminal narrowing IMPRESSION: Left posterolateral disc protrusion at L5-S1 with moderate left neural foraminal narrowing. Reviewed, Interpreted and Dictated by Aravind Dupree MD Transcribed by Tia Brooks Authenticated and . [facility]
== END ==
PROVIDERS: PCP Emergency Medicine; Visit Provider Emergency Medicine
DX: M54.50 Low back pain, unspecified (principal)
CPT/HCPCS: 72148; 76376

== ENCOUNTER → 2022-11-10 14:17 | Outpatient (CLI) | payer OTHER, SELFPAY ==
[2022-11-10 22:02] LABS: Barbiturates Screen,Urine Negative ng/ml (<200)
[2022-11-10 22:03] LABS: Amphetamine/Metha Screen,Urine Negative ng/ml (<1000); Benzodiazepines Screen,Urine Negative ng/ml (<200)
[2022-11-10 22:04] LABS: Cannabinoid Screen,Urine Positive ng/ml (<50)
[2022-11-10 22:05] LABS: Cocaine Screen,Urine Negative ng/ml (<300); Methadone Screen,Urine Negative ng/ml (<300)
[2022-11-10 22:06] LABS: Opiate Screen,Urine Positive ng/ml (<300)
[2022-11-10 22:07] LABS: Phencyclidine Screen,Urine Negative ng/ml (<25)
== END ==
PROVIDERS: PCP Emergency Medicine; Visit Provider Emergency Medicine
DX: Z79.899 Other long term (current) drug therapy (principal)
CPT/HCPCS: 80305

== ENCOUNTER → 2022-12-14 08:47 | Outpatient (POV) | payer OTHER, SELFPAY ==
[2022-12-14 09:10] VITALS: BP 151/83; PULSE 63; RESP 18; O2SAT 97; BMI 39.2
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
== END ==
PROVIDERS: PCP Nurse Practitioner Family; Visit Provider Nurse Practitioner Family
DX: M51.16 Intervertebral disc disorders with radiculopathy, lumbar region (principal); M48.061 Spinal stenosis, lumbar region without neurogenic claudication
CPT/HCPCS: 99202; G0463

== ENCOUNTER → 2022-12-14 13:18 | Outpatient (CLI) | payer OTHER, SELFPAY ==
[2022-12-14 15:07] LABS: Amphetamine/Metha Screen,Urine Negative ng/ml (<1000)
[2022-12-14 15:08] LABS: Barbiturates Screen,Urine Negative ng/ml (<200)
[2022-12-14 15:09] LABS: Benzodiazepines Screen,Urine Negative ng/ml (<200)
[2022-12-14 15:12] LABS: Methadone Screen,Urine Negative ng/ml (<300)
[2022-12-14 15:13] LABS: Opiate Screen,Urine Positive ng/ml (<300)
[2022-12-14 15:14] LABS: Cocaine Screen,Urine Negative ng/ml (<300); Phencyclidine Screen,Urine Negative ng/ml (<25)
[2022-12-14 15:20] LABS: Cannabinoid Screen,Urine Positive ng/ml (<50)
== END ==
PROVIDERS: PCP Emergency Medicine; Visit Provider Emergency Medicine
DX: Z79.899 Other long term (current) drug therapy (principal)
CPT/HCPCS: 80305

== ENCOUNTER → 2023-04-06 13:15 | Outpatient (CLI) | payer OTHER, SELFPAY ==
[2023-04-06 18:32] LABS: Amphetamine/Metha Screen,Urine Negative ng/ml (<1000)
[2023-04-06 18:33] LABS: Barbiturates Screen,Urine Negative ng/ml (<200); Benzodiazepines Screen,Urine Negative ng/ml (<200)
[2023-04-06 18:34] LABS: Cannabinoid Screen,Urine Positive ng/ml (<50)
[2023-04-06 18:35] LABS: Cocaine Screen,Urine Negative ng/ml (<300); Methadone Screen,Urine Negative ng/ml (<300)
[2023-04-06 18:36] LABS: Opiate Screen,Urine Positive ng/ml (<300)
[2023-04-06 18:37] LABS: Phencyclidine Screen,Urine Negative ng/ml (<25)
== END ==
PROVIDERS: PCP Emergency Medicine; Visit Provider Emergency Medicine
DX: G89.29 Other chronic pain (principal)
CPT/HCPCS: 80305